=== PATIENT | female | born 1975 | race Caucasian/White ===

== ENCOUNTER 2022-07-08 17:46 | Emergency (ER) | payer SELFPAY ==
[~2022-07-08] VITALS: Ht 170 cm; Wt 79.3 kg
--- NOTE | 2022-07-08 18:46 | ED Lower Extremity ---
General Chief Complaint: Lower Extremity Stated Complaint: RT BIG TOE INFECTION Nursing Triage Note: PT THINKS SHE HAS HENAO BITE TO RIGHT GREAT TOE. History of Present Illness Date Seen by Provider: Jul 08, 2022 Time Seen by Provider: 18:10 Initial Comments 46 year old brittle IDDM reports on 07/01/22 she went outside for 2-3 min with just a sock on. Her extremities are sensitive to cold. She took her sock off and the skin on the tip of her right great toe peeled off. She was treated with Keflex and Bactroban by her PCP. He evaluated her today and there was increased erythema to her 1st MTP joint of the right foot. She reports no cultures or x- ryas have been obtained. Onset: last week Pain/Injury Location: right 1st toe Method of Injury: other (exposure to extreme cold) Allergies and Home Medications Allergies Coded Allergies: oxycodone (Verified Allergy, Severe, SYNCOPE, 07/08/22) Patient Home Medication List Home Medication List Reviewed: Yes Clindamycin HCl (Clindamycin HCl) 300 Mg Capsule, 300 MG PO Q8H Prescribed by: REE GARAY on 07/08/221956 Review of Systems Constitutional: no symptoms reported, see HPI Cardiovascular: no symptoms reported, see HPI Skin: see HPI, other (Ucer and cellulitis to right great toe. ) All Other Systems Reviewed Negative Unless Noted: Yes Past Oyxiqoj-Mwkuyi-Zyqovh Hx Patient Social History Tobacco Use?: Yes Tobacco type used: Cigarettes Smoking Status: Current Everyday Smoker Substance use?: No Alcohol Use?: No Family Medical History Reviewed Nursing Family Hx Physical Exam Vital Signs Vital Signs - First Documented 07/08/22 18:07 Temp 37.0 Pulse 105 Resp 16 B/P (MAP) 158/104 (122) Pulse Ox 97 O2 Delivery Room Air Capillary Refill : Less Than 3 Seconds Height, Weight, BMI Height: '" Weight: lbs. oz. kg; 27.00 BMI Method: General Appearance: WD/WN, no apparent distress Cardiovascular: normal peripheral pulses, regular rate, rhythm Respiratory: chest non-tender, lungs clear Gastrointestinal: normal bowel sounds, non tender, soft Feet: left foot non-tender, left foot normal inspection, left foot normal range of motion; right foot infection, right foot limited range of motion, right foot soft tissue tenderness, right foot swelling, right foot other (Healing ulcer to tip of right great toe. Milde erythema, no active drainage from great toe at MTP. ) Neurologic/Psychiatric: no motor/sensory deficits, alert, normal mood/affect, oriented x 3 Progress/Results/Core Measures Results/Orders Lab Results Laboratory Tests Test 07/08/22 19:00 07/08/22 19:26 07/08/22 20:05 Range/Units White Blood Count 14.4 H 4.3-11.0 10^3/uL Red Blood Count 4.67 3.80-5.11 10^6/uL Hemoglobin 13.1 11.5-16.0 g/dL Hematocrit 41 35-52 % Mean Corpuscular Volume 87 80-99 fL Mean Corpuscular Hemoglobin 28 25-34 pg Mean Corpuscular Hemoglobin Concent 32 32-36 g/dL Red Cell Distribution Width 12.8 10.0-14.5 % Platelet Count 241 130-400 10^3/uL Mean Platelet Volume 10.6 9.0-12.2 fL Immature Granulocyte % (Auto) 0 % Neutrophils (%) (Auto) 74 42-75 % Lymphocytes (%) (Auto) 17 12-44 % Monocytes (%) (Auto) 4 0-12 % Eosinophils (%) (Auto) 4 0-10 % Basophils (%) (Auto) 1 0-10 % Neutrophils # (Auto) 10.7 H 1.8-7.8 10^3/uL Lymphocytes # (Auto) 2.4 1.0-4.0 10^3/uL Monocytes # (Auto) 0.6 0.0-1.0 10^3/uL Eosinophils # (Auto) 0.6 H 0.0-0.3 10^3/uL Basophils # (Auto) 0.1 0.0-0.1 10^3/uL Immature Granulocyte # (Auto) 0.0 0.0-0.1 10^3/uL Percent Immature Platelet Fraction 4.7 0.0-7.6 % Sodium Level 134 L 135-145 MMOL/L Potassium Level 5.7 H 3.6-5.0 MMOL/L Chloride Level 104 98-107 MMOL/L Carbon Dioxide Level 17 L 21-32 MMOL/L Anion Gap 13 5-14 MMOL/L Blood Urea Nitrogen 20 H 7-18 MG/DL Creatinine 1.57 H 0.60-1.30 MG/DL Estimat Glomerular Filtration Rate 41 BUN/Creatinine Ratio 13 Glucose Level 162 H 70-105 MG/DL Calcium Level 9.8 8.5-10.1 MG/DL Corrected Calcium 10.0 8.5-10.1 MG/DL Total Bilirubin 0.4 0.1-1.0 MG/DL Aspartate Amino Transf (AST/SGOT) 43 H 5-34 U/L Alanine Aminotransferase (ALT/SGPT) 40 0-55 U/L Alkaline Phosphatase 117 40-136 U/L C-Reactive Protein High Sensitivity 0.95 H 0.00-0.50 MG/DL Total Protein 9.0 H 6.4-8.2 GM/DL Albumin 3.8 3.2-4.5 GM/DL Urine Color YELLOW Urine Clarity CLEAR Urine pH 6.5 5-9 Urine Specific [place] 1.015 L 1.016-1.022 Urine Protein 2+ H NEGATIVE Urine Glucose (UA) NEGATIVE NEGATIVE Urine Ketones NEGATIVE NEGATIVE Urine Nitrite NEGATIVE NEGATIVE Urine Bilirubin NEGATIVE NEGATIVE Urine Urobilinogen 0.2 < = 1.0 MG/DL Urine Leukocyte Esterase TRACE H NEGATIVE Urine RBC (Auto) TRACE-I H NEGATIVE Urine RBC 0-2 /HPF Urine WBC 2-5 /HPF Urine Squamous Epithelial Cells 2-5 /HPF Urine Crystals NONE /LPF Urine Bacteria TRACE /HPF Urine Casts NONE /LPF Urine Mucus NEGATIVE /LPF Urine Yeast FEW H /HPF Urine Culture Indicated NO Prothrombin Time 13.0 12.2-14.7 SEC INR Comment 0.9 0.8-1.4 Activated Partial Thromboplast Time 33 24-35 SEC My Orders Orders - REE GARAY RESEARCH NUTRITIONIST Foot, Right, 3 View (07/08/22 18:39) Cbc With Automated Diff (07/08/22 18:39) Comprehensive Metabolic Panel (07/08/22 18:39) Hs C Reactive Protein (07/08/22 18:39) Protime With Inr (07/08/22 18:39) Partial Thromboplastin Time (07/08/22 18:39) Ua Culture If Indicated (07/08/22 18:39) Wound Culture (07/08/22 18:39) Clindamycin Capsule (Cleocin Capsule) (07/08/22 19:43) Vital Signs/I&O 07/08/22 07/08/22 18:07 20:06 Temp 37.0 Pulse 105 105 Resp 16 16 B/P (MAP) 158/104 (122) 158/104 Pulse Ox 97 97 O2 Delivery Room Air Room Air Blood Pressure Mean: 122 Progress Progress Note : Time: 18:10 Progress Note patient assessed. Will obtain x-rays, labs and re-evaluate. 1899 xray show no shanthi destruction or gas. 1929 labs all essentially normal, reviewed with Dr. Velazco, no indication for further work up or inpatient treatment. Will add Clindamycin and have her follow up with PCP or walk at [facility]. Discharge instructions and return precautions reviewed with her. Patient agreeable with treatment plan Diagnostic Imaging Diagonstic Imaging: Xray Plain Films/CT/US/NM/MRI: other (foot) Comments NAME: ECTOR STANLEY [facility] REC#: [id number] PT STATUS: REG ER : 1975 PHYSICIAN: REE GARAY ADMIT DATE: 07/08/22/ER Signed Date of Exam:07/08/22 FOOT, RIGHT, 3 VIEW INDICATION: Suspicion for frostbite. FINDINGS: No opaque foreign body or soft tissue gas. There does appear to be soft tissue swelling about the great toe. No underlying bony destruction. No osteolysis of the terminal tuft. No abnormal periosteal reaction. There are some arthritic changes to the interphalangeal joints. IMPRESSION: Great toe soft tissue swelling without gas, foreign body, or bony destruction. Dictated by: Dictated on workstation # [id number] Dict: 07/08/221846 Trans: 07/08/221852 [id number] Interpreted by: PINEDA JASSO Electronically signed by: PINEDA JASSO 07/08/221852 Reviewed: Reviewed by Mn Departure Impression Primary Impression: Diabetic ulcer of right great toe Additional Impression: Insulin dependent diabetes mellitus Disposition: 01 HOME, SELF-CARE Condition: Stable Departure-Patient Inst. Decision time for Depature: 19:30 Referrals: JACKIE YAÑEZ MD (PCP/Family) Primary Care Physician Patient Instructions: Diabetic Foot Ulcer (DC) Add. Discharge Instructions: Monitor right great toe, follow up daily with Primary Care Provider. Consider Wound Care Referral with [facility] or through [facility], can be set up with Primary Care. Continue current medication and add Clindamycin. Monitor glucose and adjust insulin as needed. Follow up at ER for new, urgent health care needs. All discharge instructions reviewed with patient and/or family. Voiced unders tanding. Scripts Clindamycin HCl (Clindamycin HCl) 300 Mg Capsule 300 MG PO Q8H, #21 CAP 0 Refills Prov: REE GARAY 07/08/22 Copy Copies To 1: JAMES GALEANA AMY ARNP Jul 08, 2022 18:46
--- NOTE | 2022-07-08 18:50 | Diagnostic Imaging Report ---
INDICATION: Suspicion for frostbite. FINDINGS: No opaque foreign body or soft tissue gas. There does appear to be soft tissue swelling about the great toe. No underlying bony destruction. No osteolysis of the terminal tuft. No abnormal periosteal reaction. There are some arthritic changes to the interphalangeal joints. IMPRESSION: Great toe soft tissue swelling without gas, foreign body, or bony destruction. Dictated by: Dictated on workstation # [id number]
[2022-07-08 19:16] LABS: MEAN CORPUSCULAR HEMOGLOBIN 28 pg (25-34); MONOCYTES % (AUTO) 4 % (0-12)
[2022-07-08 19:18] LABS: BASOPHILS # (AUTO) 0.1 10^3/uL (0.0-0.1); BASOPHILS % (AUTO) 1 % (0-10); EOSINOPHILS # (AUTO) 0.6 10^3/uL (0.0-0.3); EOSINOPHILS % (AUTO) 4 % (0-10); HEMATOCRIT 41 % (35-52); HEMOGLOBIN 13.1 g/dL (11.5-16.0); LYMPHOCYTES # (AUTO) 2.4 10^3/uL (1.0-4.0); LYMPHOCYTES % (AUTO) 17 % (12-44); MEAN CORPUSCULAR HGB CONC 32 g/dL (32-36); MEAN CORPUSCULAR VOLUME 87 fL (80-99); MEAN PLATELET VOLUME 10.6 fL (9.0-12.2); MONOCYTES # (AUTO) 0.6 10^3/uL (0.0-1.0); NEUTROPHILS # (AUTO) 10.7 10^3/uL (1.8-7.8); NEUTROPHILS % (AUTO) 74 % (42-75); PLATELET COUNT 241 10^3/uL (130-400); WHITE BLOOD COUNT 14.4 10^3/uL (4.3-11.0)
[2022-07-08 19:25] LABS: ALBUMIN 3.8 GM/DL (3.2-4.5); POTASSIUM 5.7 MMOL/L (3.6-5.0)
[2022-07-08 19:26] LABS: CALCIUM 9.8 MG/DL (8.5-10.1)
[2022-07-08 19:30] LABS: BILIRUBIN,TOTAL 0.4 MG/DL (0.1-1.0)
[2022-07-08 19:31] LABS: BILIRUBIN,URINE NEGATIVE (NEGATIVE); CLARITY,URINE CLEAR; COLOR,URINE YELLOW; GLUCOSE, URINE (UA) NEGATIVE (NEGATIVE); KETONES,URINE NEGATIVE (NEGATIVE); LEUKOCYTE ESTERASE ,URINE TRACE (NEGATIVE); NITRITE,URINE NEGATIVE (NEGATIVE); PH,URINE 6.5 (5-9); PROTEIN,URINE 2+ (NEGATIVE)
[2022-07-08 19:31] LABS: CREATININE SERUM 1.57 MG/DL (0.60-1.30)
[2022-07-08 19:42] LABS: BACTERIA,URINE TRACE /HPF; RBC,URINE 0-2 /HPF; YEAST,URINE FEW /HPF
[2022-07-08] MEDS ORDERED: CLINDAMYCIN 150 MG (CLEOCIN) CAP PO STA (19:43)
[2022-07-08] MEDS ORDERED: CLIN-144 PO (19:57)
[2022-07-08 20:06] VITALS: BP 158/104
[2022-07-08 20:24] LABS: INR 0.9 (0.8-1.4)
== END 2022-07-08 20:05 | disposition home or self-care (01) ==
LOC: ER 17:49
DX: E11.621 Type 2 diabetes mellitus with foot ulcer (principal); L97.519 Non-pressure chronic ulcer of other part of right foot with unspecified severity; F17.210 Nicotine dependence, cigarettes, uncomplicated; Z28.310 Unvaccinated for COVID-19; Z79.4 Long term (current) use of insulin
CPT/HCPCS: 36415; 73630; 80053; 81000; 85025; 85610; 85730; 86141; 87070; 87205